=== PATIENT | female | born 1995 | race African-American/Black ===

== ENCOUNTER 2018-10-07 01:40 | Inpatient (IN) ==
[2018-10-07] MEDS ORDERED: LACTATED RINGERS 500 ML IV PRN (01:51)
[2018-10-07] MEDS ORDERED: MEPERIDINE 50 MG/1 ML VIAL IV PRN (01:51)
[2018-10-07 02:28] LABS: Basophils % 0.2 % (0.0-0.8); Eosinophils # 0.1 10*3/uL (0.0-0.87); Eosinophils % 0.6 % (0.00-10.9); Hematocrit 36.7 VOL% (35.7-47.0); Hemoglobin 11.6 GM/DL (12.0-16.0); Immature Granulocytes % 0.7 %; Immature Granulocytes Absolute 0.09 #; Lymphocytes # 2.4 10*3/uL (1.4-4.0); Lymphocytes % 18.3 % (21.3-54.2); Mean Corpuscular HGB Conc 31.6 GM/DL (32-36); Mean Corpuscular Volume 89.1 FL (87-102); Monocytes % 9.7 % (1.7-12.7); Neutrophils % 70.5 % (38.7-73.9); Platelet Count 207 T/CUMM (130-400); Red Blood Count 4.12 MC/CUMM (3.8-5.5)
[2018-10-07] MEDS: LACTATED RINGERS 1,000 ML IV SCH ×3 (02:30→16:05)
[2018-10-07] MEDS: ONDANSETRON 4 MG/2 ML VIAL IV PRN ×2 (02:40→21:19)
[2018-10-07] MEDS: BUTORPHANOL 2 MG/ML VIAL IV PRN ×2 (02:40→07:50)
[2018-10-07] MEDS ORDERED: OXYTOCIN/LR 20 UNIT/1,000 ML BAG IV SCH (05:30)
[2018-10-07] MEDS ORDERED: LACTATED RINGERS 1,000 ML IV ONE (08:30)
[2018-10-07] MEDS ORDERED: fentaNYL 2 MCG/ROPIV 0.2% EPID 100 ML EPIDURAL SCH (08:30)
[2018-10-07] MEDS ORDERED: CITRIC ACID/SODIUM CITRATE 30 ML UDCUP PO ONE (08:30)
[2018-10-07] MEDS ORDERED: diphenhydrAMINE 50 MG/1 ML VIAL IV PRN ×2 (08:30)
[2018-10-07] MEDS ORDERED: NALOXONE 0.4 MG/ML VIAL IV PRN (08:30)
[2018-10-07] MEDS ORDERED: FAMOTIDINE 20 MG/2 ML VIAL IV ONE (08:30)
[2018-10-07] MEDS: ePHEDrine 50 MG/ML AMP IV PRN ×2 (09:50→10:56)
[2018-10-07 10:46] LABS: Apearance,Urine CLEAR (Clear); Bacteria,Urine Occasional /HPF (Few); Bilirubin,Urine Negative (Negative); Blood, Urine Negative (Negative); Glucose,Urine (UA) Negative (Negative); Ketones,Urine Negative (Negative); Mucus,Urine Occasional /LPF (Occasional); Nitrite,Urine Negative (Negative); Protein,Urine Negative; Squamous Epithelial Cell,Urine Occasional /HPF (0-10); Urine Color Straw (Yellow); Urine Specific Gravity 1.006 (1.001-1.035); Urine Urobilinogen < 2.0 EU/DL (0.2-1.0); WBC,Urine <1 /HPF (0-6)
[2018-10-07] MEDS ORDERED: OXYTOCIN 10 UNIT/ML VIAL IM ONE (15:39)
[2018-10-07] MEDS ORDERED: ceFAZolin 2,000 MG in PREMIX 1 EACH IV ONE (15:49)
[2018-10-07] MEDS ORDERED: MORPHINE 10 MG/10 ML VIAL ONE (16:06)
[2018-10-07] MEDS ORDERED: LIDOCAINE MPF 2% /EPI 20 ML VIAL ONE (16:06)
[2018-10-07] MEDS ORDERED: miSOPROStol 200 MCG TABLET ONE (16:07)
[2018-10-07] MEDS ORDERED: CARBOPROST TROMETHAMINE 250 MCG/ML AMP IM ONE (16:08)
[2018-10-07] MEDS ORDERED: METHYLERGONOVINE 0.2 MG/1 ML AMP ONE (16:08)
[2018-10-07] MEDS ORDERED: BUPIVACAINE MPF 0.25% /EPI 30 ML VIAL ONE (16:14)
[2018-10-07] MEDS ORDERED: DEXAMETHASONE 4 MG/1 ML VIAL ONE (16:15)
[2018-10-07] MEDS ORDERED: OXYTOCIN/LR 30 UNIT/1,000 ML BAG IV ONE (16:15)
[2018-10-07] MEDS ORDERED: ONDANSETRON 4 MG/2 ML VIAL ONE (16:15)
[2018-10-07 17:40] LABS: Cord Arterial Blood HCO3 15.2 MMOL/L; Cord Venous Blood HCO3 22.4 MMOL/L; Cord Venous Blood PCO2 57.6 MMHG; Cord Venous Blood PO2 23.9 MMHG
[2018-10-07] MEDS ORDERED: IBUPROFEN 800 MG TABLET PO PRN (17:48)
[2018-10-07] MEDS ORDERED: RHO(D) IMMUNE GLOBULIN 300 MCG SYRINGE IM ONE (17:48)
[2018-10-07] MEDS ORDERED: ONDANSETRON 4 MG/2 ML VIAL IV PRN (17:48)
[2018-10-07] MEDS ORDERED: OXYTOCIN/LR 20 UNIT/1,000 ML BAG IV ONE (17:48)
[2018-10-07] MEDS ORDERED: ACETAMINOPHEN 325 MG TABLET PO PRN (17:48)
[2018-10-07] MEDS ORDERED: SIMETHICONE CHEW 80 MG TABLET PO PRN (17:48)
[2018-10-07] MEDS ORDERED: LACTATED RINGERS 1,000 ML IV SCH (18:00)
[2018-10-07] MEDS: DOCUSATE SODIUM 100 MG CAPSULE PO SCH (21:42)
[2018-10-07] MEDS ORDERED: PROMETHAZINE 25 MG/1 ML VIAL IM ONE (23:08)
[2018-10-08] MEDS ORDERED: ceFAZolin 1,000 MG in SYRINGE 1 EACH IV SCH
[2018-10-08 05:10] LABS: Basophils # 0.1 10*3/uL (0.0-0.2); Basophils % 0.2 % (0.0-0.8); Hematocrit 32.2 VOL% (35.7-47.0); Hemoglobin 10.2 GM/DL (12.0-16.0); Immature Granulocytes % 0.8 %; Immature Granulocytes Absolute 0.17 #; Lymphocytes # 1.5 10*3/uL (1.4-4.0); Lymphocytes % 7.1 % (21.3-54.2); Mean Corpuscular HGB Conc 31.7 GM/DL (32-36); Mean Corpuscular Volume 89.4 FL (87-102); Mean Platelet Volume 11.5 FL (9.6-12.0); Monocytes % 6.6 % (1.7-12.7); Neutrophils % 85.3 % (38.7-73.9); Platelet Count 168 T/CUMM (130-400); Red Cell Distribution Width 13.7 % (9.3-17.3); White Blood Count 21.6 T/CUMM (4-12)
[2018-10-08] MEDS: diphenhydrAMINE CAP 25 MG CAPSULE PO PRN ×2 (05:25→20:32)
[2018-10-08 05:38] LABS: Hypochromasia 1+; Lymphocytes 5 % (20-55); Platelet Estimate Adequate; Segmented Neutrophils 92 % (50-85); Total Cells Counted 100
[2018-10-08] MEDS: METOCLOPRAMIDE 10 MG TABLET PO SCH ×2 (09:18→17:14)
[2018-10-08] MEDS: MULTIVITAMIN (PRENATAL) TABLET PO SCH (09:22)
[2018-10-08] MEDS: DOCUSATE SODIUM 100 MG CAPSULE PO SCH ×3 (09:22→23:55)
[2018-10-08] MEDS: MAGNESIUM HYDROXIDE SUSP 30 ML UDCUP PO PRN (20:31)
[2018-10-09] MEDS: METOCLOPRAMIDE 10 MG TABLET PO SCH ×2 (02:27→09:31)
[2018-10-09] MEDS: DOCUSATE SODIUM 100 MG CAPSULE PO SCH (09:31)
[2018-10-09] MEDS: MULTIVITAMIN (PRENATAL) TABLET PO SCH (09:31)
[2018-10-09] MEDS: MAGNESIUM HYDROXIDE SUSP 30 ML UDCUP PO PRN (09:31)
[2018-10-09 11:14] VITALS: BP 118/69
== END 2018-10-09 13:45 | disposition home or self-care (01) | DRG 540 ==
LOC: N.LDOUT 01:40 → N.LD 01:44 → N.OB 21:32
PROVIDERS: ADMIT Obstetrics & Gynecology; ATTEND Obstetrics & Gynecology
PROC: LDCSECT (ICD-10-PCS; 2018-10-07 16:30)

== ENCOUNTER 2019-09-20 09:44 | Inpatient (IN) ==
[2019-09-20] MEDS ORDERED: PROMETHAZINE 25 MG/1 ML VIAL ONE (09:59)
[2019-09-20] MEDS ORDERED: MEPERIDINE 50 MG/1 ML VIAL ONE (09:59)
[2019-09-20] MEDS ORDERED: ONDANSETRON 4 MG/2 ML VIAL IV PRN (10:03)
[2019-09-20] MEDS ORDERED: LACTATED RINGERS 500 ML IV PRN (10:03)
[2019-09-20] MEDS ORDERED: PROMETHAZINE 25 MG/1 ML VIAL IM ONE (10:06)
[2019-09-20] MEDS: MEPERIDINE 50 MG/1 ML VIAL IM PRN ×2 (10:13→11:00)
[2019-09-20] MEDS ORDERED: LACTATED RINGERS 1,000 ML IV SCH (10:30)
[2019-09-20 10:31] LABS: Basophils % 0.1 % (0.0-0.8); Hematocrit 37.8 VOL% (35.7-47.0); Hemoglobin 12.2 GM/DL (12.0-16.0); Immature Granulocytes % 0.7 %; Immature Granulocytes Absolute 0.13 #; Lymphocytes % 5.2 % (21.3-54.2); Mean Corpuscular HGB Conc 32.3 GM/DL (32-36); Mean Corpuscular Volume 90.4 FL (87-102); Mean Platelet Volume 12.2 FL (9.6-12.0); Monocytes % 3.8 % (1.7-12.7); Neutrophils % 90.2 % (38.7-73.9); Platelet Count 189 T/CUMM (130-400); Red Blood Count 4.18 MC/CUMM (3.8-5.5); Red Cell Distribution Width 13.8 % (9.3-17.3); White Blood Count 19.2 T/CUMM (4-12)
[2019-09-20] MEDS ORDERED: miSOPROStoL 200 MCG TABLET ONE (10:43)
[2019-09-20] MEDS ORDERED: METHYLERGONOVINE 0.2 MG/1 ML AMP ONE (10:43)
[2019-09-20] MEDS ORDERED: CARBOPROST TROMETHAMINE 250 MCG/ML AMP IM ONE (10:44)
[2019-09-20] MEDS ORDERED: SODIUM CHLORIDE 0.9% 100 ML IV ONE (10:44)
[2019-09-20] MEDS ORDERED: AMPICILLIN 2,000 MG VIAL ONE (10:44)
[2019-09-20 10:51] LABS: Lymphocytes 6 % (20-55); Platelet Estimate Adequate; Segmented Neutrophils 90 % (50-85); Total Cells Counted 100
[2019-09-20 10:52] LABS: Bilirubin,Total 0.7 MG/DL (0.2-1.0); Calcium 8.9 MG/DL (8.5-10.1); Hypochromasia 1+; Microcytosis Slight; Osmolality,Calculated 273.7 MOS/KG (273-304); Total Protein 7.7 G/DL (6.4-8.3)
[2019-09-20] MEDS ORDERED: ePHEDrine 50 MG/ML AMP ONE (10:58)
[2019-09-20] MEDS ORDERED: BUPIVACAINE SPINAL 0.75% 2 ML AMP SPINAL ONE (10:58)
[2019-09-20] MEDS ORDERED: OXYTOCIN/LR 20 UNIT/1,000 ML BAG IV ONE ×2 (13:28→13:57)
[2019-09-20] MEDS ORDERED: OXYTOCIN/LR 30 UNIT/1,000 ML BAG IV ONE (13:56)
[2019-09-20] MEDS ORDERED: IBUPROFEN 800 MG TABLET PO PRN (20:07)
[2019-09-20] MEDS ORDERED: IBUPROFEN 100 MG/5 ML UDCUP PO PRN (20:31)
[2019-09-20] MEDS: DOCUSATE SODIUM 100 MG CAPSULE PO SCH (21:46)
[2019-09-21 06:36] LABS: Basophils % 0.2 % (0.0-0.8); Eosinophils # 0.1 10*3/uL (0.0-0.87); Eosinophils % 0.6 % (0.00-10.9); Hematocrit 32.4 VOL% (35.7-47.0); Hemoglobin 10.3 GM/DL (12.0-16.0); Immature Granulocytes % 0.6 %; Immature Granulocytes Absolute 0.11 #; Lymphocytes # 3.4 10*3/uL (1.4-4.0); Lymphocytes % 19.3 % (21.3-54.2); Mean Corpuscular HGB Conc 31.8 GM/DL (32-36); Mean Corpuscular Volume 91.8 FL (87-102); Mean Platelet Volume 12.5 FL (9.6-12.0); Monocytes % 8.5 % (1.7-12.7); Neutrophils % 70.8 % (38.7-73.9); Platelet Count 141 T/CUMM (130-400); Red Blood Count 3.53 MC/CUMM (3.8-5.5); Red Cell Distribution Width 13.9 % (9.3-17.3); White Blood Count 17.4 T/CUMM (4-12)
[2019-09-21] MEDS: DOCUSATE SODIUM 100 MG CAPSULE PO SCH (08:50)
[2019-09-21] MEDS ORDERED: WITCH HAZEL PADS 100/JAR TOP PRN (10:27)
[2019-09-21 11:30] VITALS: BP 118/68
[2019-09-21] MEDS ORDERED: DIPH/TET/ACEL PERT BOOSTER VACCINE 0.5 ML VIAL IM ONE (13:01)
[2019-09-21] MEDS ORDERED: HYDROCORTISONE 2.5% RECTAL CREAM 30 GM TUBE TOP SCH (15:00)
== END 2019-09-21 14:20 | disposition home or self-care (01) | DRG 560 ==
LOC: N.LDOUT 09:44 → N.LD 09:46 → N.OB 15:13
PROVIDERS: ADMIT Obstetrics & Gynecology; ATTEND Obstetrics & Gynecology